=== PATIENT | female | born 1990 | race Caucasian/White ===

== ENCOUNTER 2016-06-03 19:29 | Emergency (ER) | payer MEDICARE, MEDICAID ==
[~2016-06-03] VITALS: Ht 149.9 cm; Wt 42.0 kg
[~2016-06-03 19:29] MED LIST: BENZ1CAP8 PO; LORA-373 PO; OXYC1CAP PO; ZOFR4TAB3 SL
[2016-06-03 19:33] VITALS: BP 166/105; PULSE 96; RESP 18; TEMP 97.6; O2SAT 98
== END 2016-06-03 21:42 | disposition left against medical advice (07) ==
LOC: NED 19:29
DX: R11.2 Nausea with vomiting, unspecified (principal); Z53.21 Procedure and treatment not carried out due to patient leaving prior to being seen by health care provider
CPT/HCPCS: 99281